=== PATIENT | female | born 1965 | race Caucasian/White ===

== ENCOUNTER 2022-05-09 12:19 | Inpatient (IN) | payer OTHER ==
[~2022-05-09] VITALS: Ht 165.1 cm; Wt 76.2 kg
[2022-05-09 13:45] LABS: BASOPHILS % (AUTO) 0.7 % (0.0-2.0); EOSINOPHILS % (AUTO) 0.4 % (1.0-6.0); HEMATOCRIT 39.4 % (36-46); HEMOGLOBIN 13.1 g/dL (12.0-16.0); LYMPHOCYTES # (AUTO) 1.4 K/uL (1.0-4.8); LYMPHOCYTES % (AUTO) 11.5 % (22.0-44.0); MEAN CORPUSCULAR HEMOGLOBIN 35.7 pg (26.0-34.0); MEAN CORPUSCULAR HGB CONC 33.4 G/dL (31.0-37.0); MEAN CORPUSCULAR VOLUME 107 fL (80-100); MONOCYTES # (AUTO) 0.9 K/uL (0.1-1.0); MONOCYTES % (AUTO) 7.6 % (2.0-9.0); NEUTROPHILS # (AUTO) 9.4 K/uL (1.8-7.7); NEUTROPHILS % (AUTO) 79.8 % (40.0-70.0); PLATELET COUNT (AUTO) 217 K/uL (150-450); RED BLOOD CELL COUNT(AUTO) 3.68 MIL/uL (4.00-5.20); RED CELL DISTRIBUTION WIDTH 14.7 % (11.5-14.5)
[2022-05-09 14:02] LABS: ANION GAP 7 mmol/L (8-16); B-TYPE NATRIURETIC PEPTIDE 59 pg/mL (0-100); CALCIUM, TOTAL 8.4 mg/dL (8.8-10.5); CARBON DIOXIDE 26 mmol/L (22-29); CHLORIDE 103 mmol/L (98-107); CREATININE 0.51 mg/dL (0.60-1.30); GLOMERULAR FILTR. RATE CALC > 60 mL/min (>60); GLUCOSE,RANDOM 110 mg/dL (70-110); POTASSIUM 3.5 mmol/L (3.5-5.1); SODIUM SERUM 136 mmol/L (136-145); UREA NITROGEN, BLOOD 8 mg/dL (7-18)
[2022-05-09 14:08] LABS: ALANINE AMINOTRANSFERASE 28 U/L (12-78); ALBUMIN 2.8 g/dL (3.4-5.0); ALKALINE PHOSPHATASE 182 U/L (46-116); ASPARTATE AMINOTRANSFERASE 59 U/L (15-37); BILIRUBIN,TOTAL 6.4 mg/dL (0.1-1.0); LIPASE 153 U/L (73-393); TOTAL PROTEIN, SERUM 7.2 g/dL (6.4-8.2)
[2022-05-09 14:16] LABS: LACTIC ACID 2.1 mmol/L (0.4-2.0)
[2022-05-09 15:06] LABS: INR 1.7 (0.9-1.1); PROTHROMBIN TIME 17.4 SEC (9.4-11.6)
[2022-05-09] MEDS ORDERED: SODIUM CHLORIDE 0.9% 100 ML ONE ×2 (15:34→21:40)
[2022-05-09] MEDS ORDERED: IOHEXOL 350 MG/ML 100 ML VIAL ONE (15:34)
[2022-05-09] MEDS ORDERED: ONDANSETRON HCL 4 MG/2 ML VIAL IVP PRN ×2 (17:00→20:00)
[2022-05-09] MEDS ORDERED: FUROSEMIDE 40 MG/4 ML VIAL IVP ONE (17:00)
[2022-05-09] MEDS ORDERED: BISACODYL 10 MG RECTAL RECTAL SUPPOSITORY PR PRN (20:00)
[2022-05-09] MEDS ORDERED: ZOLPIDEM TARTRATE 5 MG TABLET PO PRN (20:00)
[2022-05-09] MEDS ORDERED: ACETAMINOPHEN 325 MG TABLET PO PRN (20:00)
[2022-05-09] MEDS ORDERED: MAGNESIUM HYDROXIDE SUSPENSION 30 ML UDCUP PO PRN (20:00)
[2022-05-09] MEDS ORDERED: MORPHINE SULFATE 2 MG/ML SYRINGE IVP PRN (20:00)
[2022-05-09] MEDS: DOCUSATE SODIUM 100 MG CAPSULE PO SCH (21:00)
[2022-05-09] MEDS: CefTRIAXone 1 GM/DEXTROSE 50 ML IV SCH (21:56)
[2022-05-09] MEDS ORDERED: MORPHINE SULFATE 2 MG/ML SYRINGE IVP ONE (22:45)
[2022-05-10 00:45] LABS: COVID AG,FIA SOURCE NASOPHARYNGEAL
[2022-05-10 00:53] VITALS: BP 136/80
[2022-05-10 06:09] VITALS: BP 140/77
[2022-05-10 06:52] LABS: INR 1.8 (0.9-1.1); PROTHROMBIN TIME 18.2 SEC (9.4-11.6)
[2022-05-10 06:57] LABS: BASOPHILS % (AUTO) 0.7 % (0.0-2.0); EOSINOPHILS % (AUTO) 2.4 % (1.0-6.0); HEMATOCRIT 36.3 % (36-46); HEMOGLOBIN 12.3 g/dL (12.0-16.0); LYMPHOCYTES # (AUTO) 2.2 K/uL (1.0-4.8); LYMPHOCYTES % (AUTO) 16.7 % (22.0-44.0); MEAN CORPUSCULAR HEMOGLOBIN 35.7 pg (26.0-34.0); MEAN CORPUSCULAR HGB CONC 33.7 G/dL (31.0-37.0); MEAN CORPUSCULAR VOLUME 106 fL (80-100); MONOCYTES # (AUTO) 1.1 K/uL (0.1-1.0); MONOCYTES % (AUTO) 8.7 % (2.0-9.0); NEUTROPHILS # (AUTO) 9.3 K/uL (1.8-7.7); NEUTROPHILS % (AUTO) 71.5 % (40.0-70.0); RED BLOOD CELL COUNT(AUTO) 3.43 MIL/uL (4.00-5.20); RED CELL DISTRIBUTION WIDTH 14.6 % (11.5-14.5)
[2022-05-10 06:59] LABS: ANION GAP 7 mmol/L (8-16); CALCIUM, TOTAL 8.3 mg/dL (8.8-10.5); CARBON DIOXIDE 27 mmol/L (22-29); CHLORIDE 105 mmol/L (98-107); CREATININE 0.62 mg/dL (0.60-1.30); GLOMERULAR FILTR. RATE CALC > 60 mL/min (>60); GLUCOSE,RANDOM 90 mg/dL (70-110); POTASSIUM 3.7 mmol/L (3.5-5.1); SODIUM SERUM 139 mmol/L (136-145); UREA NITROGEN, BLOOD 9 mg/dL (7-18)
[2022-05-10 07:26] VITALS: BP 125/72
[2022-05-10 08:01] LABS: PLATELET COUNT (AUTO) 200 K/uL (150-450)
[2022-05-10 08:58] LABS: AMPHET/METH SCREEN,URINE NEGATIVE (NEGATIVE); BARBITURATE SCREEN, URINE NEGATIVE (NEGATIVE); BENZODIAZEPINES SCREEN,URINE NEGATIVE (NEGATIVE); CANNABINOID SCREEN,URINE NEGATIVE (NEGATIVE); COCAINE SCREEN,URINE NEGATIVE (NEGATIVE); METHADONE SCREEN, URINE NEGATIVE (NEGATIVE); OPIATE SCREEN,URINE NEGATIVE (NEGATIVE); PHENCYCLIDINE SCREEN,URINE NEGATIVE (NEGATIVE)
[2022-05-10] MEDS: PANTOPRAZOLE SODIUM 40 MG DR TABLET PO SCH (09:22)
[2022-05-10] MEDS: PHYTONADIONE 1 MG/0.5 ML AMP SQ SCH (09:22)
[2022-05-10] MEDS: FUROSEMIDE 40 MG/4 ML VIAL IVP SCH (09:23)
[2022-05-10] MEDS: SPIRONOLACTONE 25 MG TABLET PO SCH (09:23)
[2022-05-10] MEDS: DOCUSATE SODIUM 100 MG CAPSULE PO SCH ×2 (09:23→21:00)
[2022-05-10 11:23] VITALS: BP 122/72
[2022-05-10] MEDS: GuaiFENesin/D-METHORPHAN [SUGAR-FREE] 200-20MG/10 ML SYRUP UDCUP PO PRN (15:30)
[2022-05-10 15:37] VITALS: BP 132/72
[2022-05-10 20:35] VITALS: BP 130/74
[2022-05-10] MEDS: CefTRIAXone 1 GM/DEXTROSE 50 ML IV SCH (21:00)
[2022-05-11 00:45] VITALS: BP 125/70
[2022-05-11 05:19] VITALS: BP 142/83
[2022-05-11 07:10] LABS: EOSINOPHILS % (AUTO) 2.6 % (1.0-6.0); HEMATOCRIT 35.5 % (36-46); HEMOGLOBIN 11.9 g/dL (12.0-16.0); LYMPHOCYTES # (AUTO) 2.2 K/uL (1.0-4.8); LYMPHOCYTES % (AUTO) 19.3 % (22.0-44.0); MEAN CORPUSCULAR HEMOGLOBIN 35.7 pg (26.0-34.0); MEAN CORPUSCULAR HGB CONC 33.5 G/dL (31.0-37.0); MEAN CORPUSCULAR VOLUME 107 fL (80-100); MONOCYTES # (AUTO) 1.2 K/uL (0.1-1.0); MONOCYTES % (AUTO) 10.8 % (2.0-9.0); NEUTROPHILS # (AUTO) 7.7 K/uL (1.8-7.7); NEUTROPHILS % (AUTO) 66.3 % (40.0-70.0); PLATELET COUNT (AUTO) 183 K/uL (150-450); RED BLOOD CELL COUNT(AUTO) 3.33 MIL/uL (4.00-5.20); RED CELL DISTRIBUTION WIDTH 14.6 % (11.5-14.5)
[2022-05-11 07:19] LABS: ANION GAP 7 mmol/L (8-16); CARBON DIOXIDE 26 mmol/L (22-29); CHLORIDE 105 mmol/L (98-107); CREATININE 0.56 mg/dL (0.60-1.30); GLOMERULAR FILTR. RATE CALC > 60 mL/min (>60); GLUCOSE,RANDOM 83 mg/dL (70-110); POTASSIUM 3.2 mmol/L (3.5-5.1); SODIUM SERUM 138 mmol/L (136-145); UREA NITROGEN, BLOOD 9 mg/dL (7-18)
[2022-05-11 07:23] LABS: INR 1.7 (0.9-1.1); PROTHROMBIN TIME 17.9 SEC (9.4-11.6)
[2022-05-11] MEDS: DOCUSATE SODIUM 100 MG CAPSULE PO SCH ×2 (08:35→20:08)
[2022-05-11] MEDS: FUROSEMIDE 40 MG/4 ML VIAL IVP SCH (08:36)
[2022-05-11 08:37] VITALS: BP 124/88
[2022-05-11] MEDS: PANTOPRAZOLE SODIUM 40 MG DR TABLET PO SCH (08:37)
[2022-05-11] MEDS: SPIRONOLACTONE 25 MG TABLET PO SCH (08:37)
[2022-05-11] MEDS: PHYTONADIONE 1 MG/0.5 ML AMP SQ SCH (08:38)
[2022-05-11 12:18] VITALS: BP 128/51
[2022-05-11] MEDS: GuaiFENesin/D-METHORPHAN [SUGAR-FREE] 200-20MG/10 ML SYRUP UDCUP PO PRN (15:01)
[2022-05-11 15:45] VITALS: BP 133/77
[2022-05-11 19:27] VITALS: BP 126/70
[2022-05-11] MEDS: CefTRIAXone 1 GM/DEXTROSE 50 ML IV SCH (20:07)
[2022-05-11] MEDS ORDERED: POTASSIUM CHLORIDE 20 MEQ ER TABLET PO ONE (21:45)
[2022-05-12 00:12] VITALS: BP 132/61
[2022-05-12 05:06] VITALS: BP 137/79
[2022-05-12 07:19] LABS: ANION GAP 6 mmol/L (8-16); CARBON DIOXIDE 28 mmol/L (22-29); CHLORIDE 103 mmol/L (98-107); CREATININE 0.59 mg/dL (0.60-1.30); GLOMERULAR FILTR. RATE CALC > 60 mL/min (>60); GLUCOSE,RANDOM 84 mg/dL (70-110); POTASSIUM 3.8 mmol/L (3.5-5.1); SODIUM SERUM 137 mmol/L (136-145); UREA NITROGEN, BLOOD 7 mg/dL (7-18)
[2022-05-12 07:25] LABS: BASOPHILS % (AUTO) 0.7 % (0.0-2.0); EOSINOPHILS % (AUTO) 3.3 % (1.0-6.0); HEMATOCRIT 35.2 % (36-46); HEMOGLOBIN 12.2 g/dL (12.0-16.0); LYMPHOCYTES # (AUTO) 2.2 K/uL (1.0-4.8); LYMPHOCYTES % (AUTO) 18.2 % (22.0-44.0); MEAN CORPUSCULAR HEMOGLOBIN 37.2 pg (26.0-34.0); MEAN CORPUSCULAR HGB CONC 34.7 G/dL (31.0-37.0); MEAN CORPUSCULAR VOLUME 107 fL (80-100); MONOCYTES # (AUTO) 1.3 K/uL (0.1-1.0); NEUTROPHILS % (AUTO) 66.8 % (40.0-70.0); PLATELET COUNT (AUTO) 183 K/uL (150-450); RED BLOOD CELL COUNT(AUTO) 3.28 MIL/uL (4.00-5.20); RED CELL DISTRIBUTION WIDTH 14.6 % (11.5-14.5)
[2022-05-12 07:35] LABS: INR 1.7 (0.9-1.1); PROTHROMBIN TIME 17.4 SEC (9.4-11.6)
[2022-05-12 08:00] VITALS: BP 156/95
[2022-05-12 08:11] LABS: ALBUMIN 2.3 g/dL (3.4-5.0); LACTATE DEHYDROGENASE 204 U/L (81-234); TOTAL PROTEIN, SERUM 6.2 g/dL (6.4-8.2)
[2022-05-12] MEDS: FUROSEMIDE 40 MG/4 ML VIAL IVP SCH (08:33)
[2022-05-12] MEDS: PHYTONADIONE 1 MG/0.5 ML AMP SQ SCH (08:33)
[2022-05-12] MEDS: SPIRONOLACTONE 25 MG TABLET PO SCH (08:34)
[2022-05-12] MEDS: PANTOPRAZOLE SODIUM 40 MG DR TABLET PO SCH (08:34)
[2022-05-12] MEDS: DOCUSATE SODIUM 100 MG CAPSULE PO SCH ×2 (08:34→20:02)
[2022-05-12] MEDS: LACTULOSE 20 GM/30 ML SOLUTION UDCUP PO SCH (09:14)
[2022-05-12 11:23] VITALS: BP 122/72
[2022-05-12 19:06] LABS: SPECIMENTYPE,BODY FLUID ASCITES
[2022-05-12 20:00] VITALS: BP 136/74
[2022-05-12] MEDS: CefTRIAXone 1 GM/DEXTROSE 50 ML IV SCH (20:02)
[2022-05-12 23:35] LABS: APPEARANCE,SPUN,BODY FLUID CLOUDY (CLEAR); APPEARANCE,UNSPUN,BODY FLUID HAZY (CLEAR); COLOR,BODY FLUID YELLOW (LT YELLOW); TOTAL VOLUME,BODY FLUID 2400 mL; WBC, BODY FLUID 345 /cu. mm.
[2022-05-12 23:36] LABS: BASOPHILS,BODY FLUID 0 %; EOSINOPHILS,BF (ANAL) 0 %; LYMPHOCYTES,BODY FLUID 23 %; MONOCYTES,BODY FLUID 18 %; NEUTROPHILS,BODY FLUID 54 %; OTHER CELLS,BODY FLUID MESOTHELIALS
[2022-05-13 00:01] VITALS: BP 122/80
[2022-05-13 04:00] VITALS: BP 131/72
[2022-05-13] MEDS: HYDROCODONE/ACETAMINOPHEN 5-325 MG TABLET PO PRN ×3 (08:14→16:28)
[2022-05-13 08:30] VITALS: BP 126/74
[2022-05-13] MEDS ORDERED: MULTIVITAMINS WITH MINERALS, THERAPEUTIC TABLET PO SCH (09:00)
[2022-05-13] MEDS: FUROSEMIDE 40 MG/4 ML VIAL IVP SCH (10:52)
[2022-05-13] MEDS: SPIRONOLACTONE 25 MG TABLET PO SCH (10:52)
[2022-05-13] MEDS: LACTULOSE 20 GM/30 ML SOLUTION UDCUP PO SCH (10:55)
[2022-05-13] MEDS: DOCUSATE SODIUM 100 MG CAPSULE PO SCH (10:55)
[2022-05-13] MEDS: PANTOPRAZOLE SODIUM 40 MG DR TABLET PO SCH (10:56)
[2022-05-13] MEDS: PHYTONADIONE 1 MG/0.5 ML AMP SQ SCH (10:59)
[2022-05-13 11:04] VITALS: BP 117/63
[2022-05-13] MEDS ORDERED: LACT10SO10 PO (11:26)
[2022-05-13] MEDS ORDERED: SPIR-37 PO (11:26)
[2022-05-13] MEDS ORDERED: FURO40 PO (11:26)
[2022-05-13] MEDS ORDERED: ALBUMIN HUMAN 25%-50GM/200ML 200 ML IV ONE (11:30)
[2022-05-13] MEDS: GuaiFENesin/D-METHORPHAN [SUGAR-FREE] 200-20MG/10 ML SYRUP UDCUP PO PRN (13:11)
[2022-05-13 15:36] VITALS: BP 126/72
== END 2022-05-13 17:31 | disposition home or self-care (01) | DRG 432 ==
LOC: EMS 12:19 → AHU 17:28 → 5S 20:38
PROVIDERS: ADMIT Internal Medicine; ATTEND Internal Medicine
PROC: 0W9G3ZZ Drainage of Peritoneal Cavity, Percutaneous Approach (ICD-10-PCS; principal; 2022-05-12)
DX: K70.31 Alcoholic cirrhosis of liver with ascites (principal); J96.00 Acute respiratory failure, unspecified whether with hypoxia or hypercapnia; D68.9 Coagulation defect, unspecified; J90 Pleural effusion, not elsewhere classified; D68.4 Acquired coagulation factor deficiency; J94.8 Other specified pleural conditions; F10.10 Alcohol abuse, uncomplicated; Y90.9 Presence of alcohol in blood, level not specified; D72.829 Elevated white blood cell count, unspecified; K59.00 Constipation, unspecified
CPT/HCPCS: 49083; 71045; 71275; 76705; 76942; 80048; 80053; 80307; 82040; 82042; 82945; 83605; 83615; 83690; 83880; 84155; 84157; 84484; 85025; 85379; 85610; 87075; 87205; 89051; 93005; 99285; G0378; J0696; J1940; J2270; J3430; J7050; P9046; Q9967; 36415-L1; 36415-TC; 87070